=== PATIENT | female | born 1985 | race Caucasian/White ===

== ENCOUNTER → 2021-06-27 | Outpatient (CLI) | payer BC ==
--- NOTE | 2021-06-28 08:21 | REP ---
INDICATION: BREAST DISCHARGE. COMPARISON: This is the patient's baseline mammogram. TECHNIQUE: 2D and 3D cc and MLO views of both breasts were obtained. Bilateral whole breast ultrasound was performed. FINDINGS: [facility]para volumetric breast density pattern is C, the breasts are heterogeneously dense, which may obscure small masses. There are no dominant masses, suspicious calcifications or areas of architectural distortion in either breast. Right breast ultrasound: There are no ultrasonographically identifiable cystic or solid masses in the right breast. Left breast ultrasound: There are no ultrasonographically and identifiable cystic or solid masses in the left breast. IMPRESSION: BIRADS/ACR : Category 1: Negative. This patient's Tyrer-Cuzick lifetime breast cancer risk assessment score is 15.2%. This mammogram was interpreted with the aid of an FDA-approved computer-aided detection system. Due to the patient's breast density, yearly screening MR/whole breast ultrasound is warranted. The patient states she had a clinical breast exam in June 2021. The patient letter being requested is M1. RECOMMENDATION: Repeat screening mammography recommended 1 year (for women over 40). <Electronically signed by Renzo Parker > 06/28/21 [id number]
== END ==
LOC: M WHC 10:54
PROVIDERS: ATTEND Nurse Practitioner Adult Health
DX: N64.3 Galactorrhea not associated with childbirth (principal)

== ENCOUNTER → 2021-06-27 | Outpatient (CLI) | payer BC ==
[2021-06-27 15:59] LABS: HCG, SERUM QUALITATIVE NEGATIVE (NEGATIVE)
[2021-06-27 16:02] LABS: THYROID STIMULATING HORMONE 0.867 uIU/ML (0.358-3.740)
[2021-06-27 16:08] LABS: PROLACTIN 10.6 NG/ML
== END ==
LOC: M PLALAB 12:51
PROVIDERS: ATTEND Nurse Practitioner Adult Health
DX: N64.3 Galactorrhea not associated with childbirth (principal)